=== PATIENT | male | born 1970 | race African-American/Black ===

== ENCOUNTER 2017-09-04 08:47 | Emergency (ER) | payer OTHER ==
[~2017-09-04] VITALS: Ht 175.3 cm; Wt 63.5 kg
[~2017-09-04 08:47] MED LIST: PRED5DRO17 OU
[2017-09-04] MEDS ORDERED: PROPARACAINE HCL 0.5% 15 ML OPHTHALMIC SOLUTION OS ONE (10:15)
[2017-09-04] MEDS ORDERED: FLUORESCEIN SODIUM 1 MG STRIP ONE (10:15)
[2017-09-04] MEDS ORDERED: HYDROCODONE/ACETAMINOPHEN 5-325 MG TABLET PO ONE (10:45)
[2017-09-04] MEDS ORDERED: ONDANSETRON HCL 4 MG TABLET PO ONE (10:45)
[2017-09-04 11:24] VITALS: BP 120/74
== END 2017-09-04 11:27 | disposition home or self-care (01) ==
LOC: EMS 08:48
DX: H11.32 Conjunctival hemorrhage, left eye (principal); R42 Dizziness and giddiness; F17.210 Nicotine dependence, cigarettes, uncomplicated; F12.90 Cannabis use, unspecified, uncomplicated
CPT/HCPCS: 99284; Q0162